=== PATIENT | female | born 1970 | race African-American/Black ===

== ENCOUNTER 2016-12-28 19:41 | Emergency (ER) | payer MEDICAID, OTHER ==
[~2016-12-28] VITALS: Ht 170.2 cm; Wt 72.0 kg
[~2016-12-28 19:41] MED LIST: NOCURR
[2016-12-28] MEDS ORDERED: AMOX500C2 PO (20:04)
[2016-12-28] MEDS ORDERED: ACETAMINOPHEN 500 MG TABLET PO ONE (22:00)
[2016-12-28] MEDS ORDERED: IBUPROFEN 600 MG TABLET PO ONE (22:00)
[2016-12-28 22:47] VITALS: BP 137/82
== END 2016-12-28 22:51 | disposition home or self-care (01) ==
LOC: EMS 19:53
DX: S13.4XXA Sprain of ligaments of cervical spine, initial encounter (principal); R03.0 Elevated blood-pressure reading, without diagnosis of hypertension; V43.52XA Car driver injured in collision with other type car in traffic accident, initial encounter; Y93.89 Activity, other specified; Y92.89 Other specified places as the place of occurrence of the external cause; Y99.8 Other external cause status
CPT/HCPCS: 72040; 99284

== ENCOUNTER 2017-08-03 15:44 | Emergency (ER) | payer OTHER ==
[~2017-08-03] VITALS: Ht 170.2 cm; Wt 79.5 kg
[~2017-08-03 15:44] MED LIST changes: +AMOX500C2 PO; -NOCURR
[2017-08-03 17:02] LABS: INFLUENZA TYPE A NEGATIVE FOR TYPE A (NEGATIVE); INFLUENZA TYPE B NEGATIVE FOR TYPE B (NEGATIVE)
[2017-08-03 18:38] VITALS: BP 105/62
[2017-08-03] MEDS ORDERED: IBUPROFEN 800 MG TABLET PO ONE (18:45)
== END 2017-08-03 20:25 | disposition home or self-care (01) ==
LOC: EMS 15:45
DX: H66.93 Otitis media, unspecified, bilateral (principal); M79.1 Myalgia
CPT/HCPCS: 87804; 99284